=== PATIENT | male | born 1960 | race Caucasian/White ===

== ENCOUNTER 2024-06-10 02:48 | Emergency (ER) | payer MEDICARE ==
[2024-06-10] MEDS ORDERED: Sodium Chloride 0.9% 10 ML Syringe FLUSH PRN (02:55)
[2024-06-10] MEDS ORDERED: Albuterol/Ipratropium 3.0-0.5 MG/3 ML Neb Soln NEB ONE (03:02)
[2024-06-10 03:21] LABS: BASOPHILS PERCENT AUTO 0.4 % (0.3-3.8); EOSINOPHILS ABSOLUTE AUTO 0.3 x10-3/uL (0.0-0.6); EOSINOPHILS PERCENT AUTO 5.8 % (0.1-6.8); HEMATOCRIT 43.8 % (38.3-50.1); HEMOGLOBIN 15.4 g/dL (12.9-17.7); LYMPHOCYTES PERCENT AUTO 20.9 % (15.8-45.3); MEAN CORPUSCULAR HEMOGLOBIN 32.4 pg (27.0-33.3); MEAN CORPUSCULAR HGB CONC 35.1 g/dL (28.7-35.3); MEAN CORPUSCULAR VOLUME 92.4 fL (80.8-98.7); MONOCYTES ABSOLUTE AUTO 0.7 x10-3/uL (0.0-1.2); MONOCYTES PERCENT AUTO 13.2 % (5.5-15.2); NEUTROPHILS PERCENT AUTO 59.7 % (40.3-71.8); PLATELET COUNT,PLT 269 x10(3)uL (117-477); RED BLOOD CELL COUNT 4.74 x10(6)uL (3.90-5.90); RED CELL DISTRIBUTION WIDTH 13.5 % (12.4-15.0)
[2024-06-10 03:27] LABS: BLOOD UREA NITROGEN,BUN 12 mg/dL (7-18); CALCIUM 9.2 mg/dL (8.6-10.2); CARBON DIOXIDE,CO2 26 mmol/L (21-32); CHLORIDE,CL 90 mmol/L (100-110); ESTIMATED GFR 84 mL/min (>60); GLUCOSE RANDOM 77 mg/dL (80-116); POTASSIUM,K 3.4 mmol/L (3.5-5.3); SODIUM,NA 130 mmol/L (135-145)
[2024-06-10 03:32] LABS: A/G RATIO 0.9; ALANINE AMINOTRANSFERASE,ALT 14 U/L (12-36); ALBUMIN 3.7 g/dL (3.2-4.6); ALKALINE PHOSPHATASE 62 IU/L (56-112); ASPARTATE AMNIOTRANSFERASE,AST 24 IU/L (5-25); BILIRUBIN TOTAL 0.6 mg/dL (0.1-1.3); PROTEIN TOTAL,TP 7.7 g/dL (6.0-8.0)
[2024-06-10 03:36] LABS: TROPONIN I 16.6 pg/mL (4.0-60.3)
[2024-06-10 03:53] LABS: INFLUENZA A NAA NEGATIVE (NEGATIVE); INFLUENZA B NAA NEGATIVE (NEGATIVE); RESPIRATORY SYNCYTIAL VIR NAA NEGATIVE (NEGATIVE)
[2024-06-10 03:54] LABS: CORONAVIRUS COVID-19 NAA NEGATIVE (NEGATIVE)
[2024-06-10] MEDS: Potassium Chloride 20 MEQ Tab.ER PO ONE (04:47)
[2024-06-10] MEDS: Sodium Chloride 1 GM Tab PO ONE (04:47)
== END 2024-06-10 05:11 | disposition home or self-care (01) ==
LOC: FB.ED 02:48
DX: J44.1 Chronic obstructive pulmonary disease with (acute) exacerbation (principal); F41.0 Panic disorder [episodic paroxysmal anxiety]; E87.6 Hypokalemia; E87.1 Hypo-osmolality and hyponatremia; R91.8 Other nonspecific abnormal finding of lung field; F17.210 Nicotine dependence, cigarettes, uncomplicated; Z79.899 Other long term (current) drug therapy
CPT/HCPCS: 0241U; 71250; 80053; 80307; 83605; 83880; 84484; 85025; 86140; 99285; A9270; 93005